=== PATIENT | female | born 1950 | race Caucasian/White ===

== ENCOUNTER → 2017-11-10 | Outpatient (CLI) | payer BC | LOC: COL.RAD 07:21 | DX: N83.8 Other noninflammatory disorders of ovary, fallopian tube and broad ligament (principal); R93.49 Abnormal radiologic findings on diagnostic imaging of other urinary organs; N95.0 Postmenopausal bleeding ==

== ENCOUNTER 2020-09-02 09:00 | Outpatient (RCR) | payer MEDICARE, BC | END 2020-09-02 10:00 | disposition home or self-care (01) | LOC: WSPT 09:00 | DX: M17.0 Bilateral primary osteoarthritis of knee (principal) ==

== ENCOUNTER 2020-11-12 12:02 | Outpatient (CLI) | payer MEDICARE, BC ==
[~2020-11-12] VITALS: Ht 160 cm; Wt 100.0 kg
[2020-11-12] VITALS (7 sets, daily range): BP systolic 127–137; BP diastolic 7–86; PULSE 67–84; TEMP 98.7–99.4
[2020-11-12] MEDS ORDERED: BENICAR 20MG TA20 MG PO (12:17)
[2020-11-12] MEDS ORDERED: LIPITOR 10MG10 MG PO (12:17)
[2020-11-12] MEDS ORDERED: COREG 6.256.25 MG/TA PO (12:17)
[2020-11-12] MEDS ORDERED: FOSAMAX 70MG TA70 MG PO (12:18)
[2020-11-12] MEDS ORDERED: ZYLOPRIM 100MG100 MG PO (12:18)
[2020-11-12] MEDS ORDERED: ASPIRIN E.C. 8181 MG PO (12:19)
[2020-11-12] MEDS ORDERED: MASON NATURAL2000 IU PO (12:19)
[2020-11-12] MEDS ORDERED: MOBIC15 MG PO (12:19)
[2020-11-12] MEDS ORDERED: VITAMINC1000TA PO (12:20)
[2020-11-12] MEDS ORDERED: PHARMASSURE ZIN50 MG PO (12:22)
--- NOTE | 2020-11-12 14:04 | NUR ---
INT DC'd with catheter intact. Pt tolerated infusion without issue. She is escorted out with staady gait.
== END 2020-11-12 14:05 | disposition home or self-care (01) ==
LOC: EUO 12:02
DX: U07.1 COVID-19 (principal)
CPT/HCPCS: Q0244

== ENCOUNTER 2022-07-25 14:53 | Outpatient (CLI) | payer MEDICARE, BC ==
[~2022-07-25] VITALS: Ht 160 cm; Wt 104.0 kg
[~2022-07-25 14:53] MED LIST: ASPIRIN E.C. 8181 MG PO; BENICAR 20MG TA20 MG PO; COREG 6.256.25 MG/TA PO; FOSAMAX 70MG TA70 MG PO; LIPITOR 10MG10 MG PO; MASON NATURAL2000 IU PO; MOBIC15 MG PO; PHARMASSURE ZIN50 MG PO; VITAMINC1000TA PO; ZYLOPRIM 100MG100 MG PO
[2022-07-25 15:17] VITALS: BP 136/79; PULSE 73; TEMP 97.7
--- NOTE | 2022-07-25 15:26 | NUR ---
pt ambulated independently to 13 for prolia injection. she tolerated the injection well and her VS were WNL. she was free from concerns and complaints at time of discharge and verbalized that her next appointment should be in 6 months. she reported no adverse reactions after recieving injection.
== END 2022-07-25 15:25 | disposition home or self-care (01) ==
LOC: EUO 14:53
DX: M81.0 Age-related osteoporosis without current pathological fracture (principal)
CPT/HCPCS: J0897

== ENCOUNTER 2023-01-05 10:30 | Outpatient (RCR) | payer MEDICARE, BC | END 2023-01-07 | disposition home or self-care (01) | LOC: WSPT | DX: M17.0 Bilateral primary osteoarthritis of knee (principal); M54.9 Dorsalgia, unspecified ==

== ENCOUNTER 2023-08-02 12:58 | Outpatient (CLI) | payer MEDICARE, BC ==
[~2023-08-02 12:58] MED LIST changes: +DESYREL 50MG50 MG PO
[2023-08-02 13:06] VITALS: BP 142/87; PULSE 66; TEMP 98
[2023-08-02] MEDS ORDERED: Denosumab 60 MG/ML SYRINGE SQ ONE (13:15)
--- NOTE | 2023-08-02 13:37 | NUR ---
PT TOLERATED INJECTION WELL. VS REMAINED WITHIN NORMAL LIMITS AND PT REMAINED FREE FROM COMPLAINTS AND CONCERNS. PT AMBULATED TO [facility] UPON DISCHARGE.
== END 2023-08-02 13:37 | disposition home or self-care (01) ==
LOC: EUO 12:58
DX: M81.0 Age-related osteoporosis without current pathological fracture (principal)
CPT/HCPCS: J0897

== ENCOUNTER 2024-02-08 11:02 | Outpatient (CLI) | payer MEDICARE, BC ==
[~2024-02-08] VITALS: Ht 160 cm; Wt 101.2 kg
[2024-02-08 11:14] VITALS: BP 121/77; PULSE 63; TEMP 98.8
[2024-02-08] MEDS ORDERED: PROLIA60 MG/ML SQ (11:19)
[2024-02-08] MEDS ORDERED: PRESERVISION A1 EAC3 PO (11:19)
[2024-02-08] MEDS ORDERED: Denosumab 60 MG/ML SYRINGE SQ ONE (11:30)
--- NOTE | 2024-02-08 11:40 | NUR ---
Pt tolerated prolia without issue. She exits dept with steady gait. Free of complaints at discharge.
== END 2024-02-08 11:40 | disposition home or self-care (01) ==
LOC: EUO 11:02
DX: M81.0 Age-related osteoporosis without current pathological fracture (principal)
CPT/HCPCS: J0897